=== PATIENT | male | born 1970 | race Caucasian/White ===

== ENCOUNTER 2021-05-22 08:55 | Inpatient (IN) ==
[2021-05-22] MEDS ORDERED: FAMOTIDINE 20MG IV PUSH 20 MG/5 ML SYR IV STA (09:10)
[2021-05-22] MEDS ORDERED: STAT IV STA (09:10)
[2021-05-22] MEDS ORDERED: LORazepam 2 MG/1 ML VIAL IV STA (09:10)
[2021-05-22] MEDS ORDERED: OCTREOTIDE ACETATE 100 MCG in SYRINGE 9 ML IV STA (09:10)
[2021-05-22] MEDS ORDERED: MULTI-VITAMIN INFUSION 10 ML, THIAMINE HCL 100 MG, FOLIC ACID 1 MG in SODIUM CHLORIDE 0... IV ONE (09:10)
--- NOTE | 2021-05-22 09:17 | Emergency Department Note ---
Impression & Plan Acute upper GI bleed, Alcohol abuse, Elevated troponin, Hyperglycemia ED Provider Note Name: FREDA PASTRANA Age: 50 Sex: M Arrives Via: Ambulance Informant: Patient ED Provider: Pipe Wagner MD Chief Complaint: vomiting Impression: As per impressions above Medical Decision Makin-year-old gentleman arrives for evaluation of vomiting blood or alcoholism and to return to drinking about a week ago drinking heavily for the last week. Began vomiting blood about 3 days ago now having black/bloody stools as well. On arrival he is somewhat tachycardic mildly pale appearing quite nauseous appearing. He is also somewhat tremulous and I suspect is mildly withdrawing from alcohol. He was given IV Ativan with improvement of his tremulous. He is given 1 L of banana bag IV along with Protonix, Pepcid for stomach protection as well as octreotide has unclear if he has a history of varices. He is not actively vomiting blood here in the ER and thus I did not immediately consult gastroenterology. His labs returned with a hemoglobin of 10, alcohol is negative and an elevated troponin. He is tachycardic though no clear evidence of ischemia on EKG and he has no chest pain or shortness of breath. Bump likely stress response that will need trending. With his active bleeding there would be contraindication to anticoagulation or aspirin. WBC is quite elevated though he is afebrile with no shortness of breath no abdominal tenderness per palpation there is no clear evidence of infection other than the white blood cell count evaluation thus I would not start antibiotics at this time. This too may be related to stress response. He has somewhat hyper glycemic notes diabetes has been discussed when he is more overweight but he believes that it had improved after losing weight. I did obtain an ABG which reveals no evidence of acidosis at this time. I consulted the hospitalist who note they will manage gastroenterology etc. consultation. Prior Medical Record and Triage/Nursing Notes reviewed by Me Differentials:Peptic ulcer disease, gastric ulcer, bleeding varices, gastritis, Kami-Dorantes tear, ischemic gut amongst other pathologies. Vital Signs: reviewed and remarkable for tachycardia Interventions: IV lock, banana bag iv, ativan iv, protonix iv, pepcid iv, octreotide iv Labs:Reviewed and remarkable for anemia, leukocytosis, elevated troponin Imagin view chest x-ray no acute findings EKG:Per My Interpretation: Indication Vomiting/Tachy: Sinus Tach 129 bpm, qtc 451. No Ectopy. No Ischemia. No previous for comparison Cardiac/Tele Monitoring: Cardiac Monitoring: An Order was placed for continuous cardiac monitoring. The monitor shows a rate of 120 with a sinus tach rhythm. Consults:Dr Hannah Ramos hospitalist Plan: Disposition: Hospitalization Condition: Fair History of Present Illness:50-year gentleman arrives for evaluation of vomiting. Patient notes a long history of alcohol issues with waxing and waning sobriety. He notes he had been sober for the last few months until about a week ago when he started drinking again. He drank daily until Saturday evening decided to quit. Over the last 3 days worsening nausea and vomiting. He started having black/bloody emesis and then today started noticing blood in his stool. He notes some mild epigastric discomfort and severe nausea. Associated with tr emulous shakes. He does feel somewhat lightheaded and weak with standing. Denies any chest pain, shortness of breath, syncope, headache, abdominal pain, leg swelling, rashes or other symptoms. 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 Exertion makes worse rest makes better. He is on no blood thinners. He is on no medications at all. He has had no recent trauma to the abdomen. No medications prior to arrival ROS: See above HPI for pertinent positives & negatives. A total of 10 systems reviewed and were otherwise negative. 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 Home Medications:None occasionally takes Pepcid Allergies:No known drug allergies Vitals:Blood Pressure: 146/90, Pulse 120, RR 19, T 36.6C, O2 92% on RA Physical Exam: GENERAL: Patient is ill/unwell appearing and in moderate distress. EYES: No scleral icterus, unremarkable pupils. ENT: Mucous membranes dry, no nasal congestion. NECK: No masses appreciated, nomeningismus, trachea is midline. RESPIRATORY: No dyspnea. Clear to auscultation and equal bilaterally. No wheeze, no rhonchi. CARDIOVASCULAR: Tachy.No murmurs, rubs, gallops appreciated. GASTROINTESTINAL: Abdomen soft, non-tender, no peritonitis.Bowel sounds positive.No masses appreciated. BACK: No midline tenderness, no CVA tenderness EXTREMITIES: Normal motion all extremities, no cyanosis, no edema. NEUROLOGIC: tremulous, alert and oriented, no acute motor or sensory deficits, no focal weakness, cranial nerves grossly intact. SKIN: No rash, no jaundice, no diaphoresis. PSYCH: Appropriate GCS: 15 ED Course: Times/Reassessments: Since patient does seem somewhat calmer though still ill- appearing. His heart rate has gradually started trending down his blood pressures been stable Critical Care: I have personally spent 35 minutes of critical care time in the direct management of this patient. Acute Upper GI bleed in alcoholic with withdrawal and elevated troponin. This was a life/limb threatening event. This 35 minutes is in excess of all separately billable procedures. Pipe Wagner MD Past Med/Surg History Medical History Alcohol abuse Surgical History (Updated 05/22/21 @ 12:28 by MOLLY Fowler) History of tonsillectomy S/P right knee arthroscopy Social History Smoking Status: Never smoker Preferred Language: Montenegrin Feels Safe at Home: Yes Allergies Allergies Allergy/AdvReac Type Severity Reaction Status Date / Time No Known Allergies Allergy Unverified 05/22/21 11:45 Home Meds Home Medications Medication Instructions Recorded Confirmed No Known Home Medications 05/22/21 05/22/21 Results & Data (ED) Vital Signs Vital Signs - 24 hr 05/22/21 09:00 05/22/21 09:30 05/22/21 11:00 Temperature 36.6 C Temperature Source Oral Pulse Rate 132 H 123 H 106 H Pulse Rhythm Regular Pulse Strength Normal Respiratory Rate 20 20 17 Respiratory Effort / Characteristics Non-Labored Spontaneous Respiratory Depth Normal Respiratory Pattern Regular Blood Pressure 137/99 154/99 H 152/83 H Blood Pressure Mean 111 117 106 Blood Pressure Position Sitting Pulse Oximetry 96 96 97 Oxygen Delivery Method Room Air Nasal Cannula Nasal Cannula Oxygen Flow Rate 2 2 Sepsis Recent Fever Within 48 Hours No Sepsis New/Unexplained Change in Mental Status No Sepsis Action Taken by Nursing No Action Required 05/22/21 12:00 05/22/21 12:30 05/22/21 13:00 Temperature Temperature Source Pulse Rate 106 H 105 H 107 H Pulse Rhythm Pulse Strength Respiratory Rate 16 18 15 Respiratory Effort / Characteristics Respiratory Depth Respiratory Pattern Blood Pressure 130/107 H 152/97 H 143/88 H Blood Pressure Mean 114 115 106 Blood Pressure Position Pulse Oximetry Oxygen Delivery Method Oxygen Flow Rate Sepsis Recent Fever Within 48 Hours Sepsis New/Unexplained Change in Mental Status Sepsis Action Taken by Nursing 05/22/21 13:30 Temperature Temperature Source Pulse Rate 110 H Pulse Rhythm Pulse Strength Respiratory Rate 19 Respiratory Effort / Characteristics Respiratory Depth Respiratory Pattern Blood Pressure 146/90 H Blood Pressure Mean 108 Blood Pressure Position Pulse Oximetry Oxygen Delivery Method Oxygen Flow Rate Sepsis Recent Fever Within 48 Hours Sepsis New/Unexplained Change in Mental Status Sepsis Action Taken by Nursing Laboratory Data Result diagrams: 05/22/21 09:09 05/22/21 09:09 Lab Results 05/22/21 05/22/21 05/22/21 Range/Units 09:09 09:09 09:09 WBC 22.16 H (4.8-10.8) K/uL RBC 3.28 L (4.7-6.1) M/uL Hgb 10.7 L (14.0-18.0) g/dL Hct 29.2 L (42-52) % MCV 89.0 (80-100) fL MCH 32.6 (25-34) pg MCHC 36.6 H (32-36) g/dL RDW Std Deviation 41.4 (36.4-46.3) fL RDW Coeff of Vito 12.9 (11.5-14.5) % Plt Count 186 (130-400) K/uL MPV 11.7 H (7.4-10.4) fL Immature Gran % (Auto) 0.4 % Neut % (Auto) 89.4 % Lymph % (Auto) 5.4 % [place] % (Auto) 4.8 % Eos % (Auto) 0.0 % Baso % (Auto) 0.0 % Neut # (Auto) 19.81 H (1.4-6.5) K/uL Lymph # (Auto) 1.20 (1.2-3.4) K/uL [place] # (Auto) 1.07 H (0.11-0.59) K/uL Eos # (Auto) 0.00 (0-0.5) K/uL Baso # (Auto) 0.00 (0-0.2) K/uL Immature Gran # (Auto) 0.08 H (0.00-0.02) K/uL PT 11.9 (9.0-12.0) Seconds INR 1.1 (0.9-1.1) APTT 22.1 (21.0-31.0) Seconds PTT Ratio 0.8 ABG pH ABG pCO2 ABG pO2 ABG HCO3 ABG O2 Saturation ABG Base Excess Dao Test Barometric Pressure Oxygen Given Sodium (136-145) mmol/L Potassium (3.5-5.1) mmol/L Chloride (98-107) mmol/L Carbon Dioxide (21-32) mmol/L Anion Gap (3-11) BUN (6-23) mg/dl Creatinine (0.6-1.4) mg/dl Est Cr Clr Drug Dosing ml/min Est GFR ( Amer) ml/min Est GFR (Non-Af Amer) ml/min BUN/Creatinine Ratio (10-20) Glucose (70-99(Fasting)) mg/dl Calcium (8.5-10.1) mg/dl Magnesium (1.7-2.4) mg/dl Total Bilirubin (0.2-1.0) mg/dl Direct Bilirubin (0-0.2) mg/dl AST (13-39) U/L ALT (7-52) U/L Alkaline Phosphatase (34-104) U/L Troponin I (0-0.04) ng/ml Total Protein (6.0-8.3) gm/dl Albumin (3.4-5.0) gm/dl Lipase (11-82) U/L Ethyl Alcohol mg/dL (<10.0) mg/dl SARS-CoV-2, RNA, NAAT (NEGATIVE) Blood Type AB Positive Antibody Screen NEGATIVE 05/22/21 05/22/21 05/22/21 Range/Units 09:09 09:09 10:19 WBC (4.8-10.8) K/uL RBC (4.7-6.1) M/uL Hgb (14.0-18.0) g/dL Hct (42-52) % MCV (80-100) fL MCH (25-34) pg MCHC (32-36) g/dL RDW Std Deviation (36.4-46.3) fL RDW Coeff of Vito (11.5-14.5) % Plt Count (130-400) K/uL MPV (7.4-10.4) fL Immature Gran % (Auto) % Neut % (Auto) % Lymph % (Auto) % [place] % (Auto) % Eos % (Auto) % Baso % (Auto) % Neut # (Auto) (1.4-6.5) K/uL Lymph # (Auto) (1.2-3.4) K/uL [place] # (Auto) (0.11-0.59) K/uL Eos # (Auto) (0-0.5) K/uL Baso # (Auto) (0-0.2) K/uL Immature Gran # (Auto) (0.00-0.02) K/uL PT (9.0-12.0) Seconds INR (0.9-1.1) APTT (21.0-31.0) Seconds PTT Ratio ABG pH Cancelled ABG pCO2 Cancelled ABG pO2 Cancelled ABG HCO3 Cancelled ABG O2 Saturation Cancelled ABG Base Excess Cancelled Dao Test Cancelled Barometric Pressure Cancelled Oxygen Given Cancelled Sodium 134 L (136-145) mmol/L Potassium 3.4 L (3.5-5.1) mmol/L Chloride 91 L (98-107) mmol/L Carbon Dioxide 28 (21-32) mmol/L Anion Gap 15 H (3-11) BUN 50 H (6-23) mg/dl Creatinine 1.14 (0.6-1.4) mg/dl Est Cr Clr Drug Dosing 83.1 ml/min Est GFR ( Amer) 85.8 ml/min Est GFR (Non-Af Amer) 74.1 ml/min BUN/Creatinine Ratio 43.9 H (10-20) Glucose 210 H (70-99(Fasting)) mg/dl Calcium 9.6 (8.5-10.1) mg/dl Magnesium 1.5 L (1.7-2.4) mg/dl Total Bilirubin 3.2 H (0.2-1.0) mg/dl Direct Bilirubin 0.5 H (0-0.2) mg/dl AST 36 (13-39) U/L ALT 29 (7-52) U/L Alkaline Phosphatase 63 (34-104) U/L Troponin I 0.08 H* (0-0.04) ng/ml Total Protein 6.4 (6.0-8.3) gm/dl Albumin 4.0 (3.4-5.0) gm/dl Lipase 43 (11-82) U/L Ethyl Alcohol mg/dL < 10.0 (<10.0) mg/dl SARS-CoV-2, RNA, NAAT (NEGATIVE) Blood Type Antibody Screen 05/22/21 05/22/21 05/22/21 Range/Units 11:00 11:04 11:40 WBC (4.8-10.8) K/uL RBC (4.7-6.1) M/uL Hgb (14.0-18.0) g/dL Hct (42-52) % MCV (80-100) fL MCH (25-34) pg MCHC (32-36) g/dL RDW Std Deviation (36.4-46.3) fL RDW Coeff of Vito (11.5-14.5) % Plt Count (130-400) K/uL MPV (7.4-10.4) fL Immature Gran % (Auto) % Neut % (Auto) % Lymph % (Auto) % [place] % (Auto) % Eos % (Auto) % Baso % (Auto) % Neut # (Auto) (1.4-6.5) K/uL Lymph # (Auto) (1.2-3.4) K/uL [place] # (Auto) (0.11-0.59) K/uL Eos # (Auto) (0-0.5) K/uL Baso # (Auto) (0-0.2) K/uL Immature Gran # (Auto) (0.00-0.02) K/uL PT (9.0-12.0) Seconds INR (0.9-1.1) APTT (21.0-31.0) Seconds PTT Ratio ABG pH Cancelled 7.51 H* ABG pCO2 Cancelled 35 ABG pO2 Cancelled 107 H ABG HCO3 Cancelled 27 H ABG O2 Saturation Cancelled 98.0 H ABG Base Excess Cancelled 3.9 H Dao Test Cancelled Pos Barometric Pressure Cancelled 730.3 Oxygen Given Cancelled 2 L Sodium (136-145) mmol/L Potassium (3.5-5.1) mmol/L Chloride (98-107) mmol/L Carbon Dioxide (21-32) mmol/L Anion Gap (3-11) BUN (6-23) mg/dl Creatinine (0.6-1.4) mg/dl Est Cr Clr Drug Dosing ml/min Est GFR ( Amer) ml/min Est GFR (Non-Af Amer) ml/min BUN/Creatinine Ratio (10-20) Glucose (70-99(Fasting)) mg/dl Calcium (8.5-10.1) mg/dl Magnesium (1.7-2.4) mg/dl Total Bilirubin (0.2-1.0) mg/dl Direct Bilirubin (0-0.2) mg/dl AST (13-39) U/L ALT (7-52) U/L Alkaline Phosphatase (34-104) U/L Troponin I (0-0.04) ng/ml Total Protein (6.0-8.3) gm/dl Albumin (3.4-5.0) gm/dl Lipase (11-82) U/L Ethyl Alcohol mg/dL (<10.0) mg/dl SARS-CoV-2, RNA, NAAT NEGATIVE (NEGATIVE) Blood Type Antibody Screen Administered Medications Magnesium Sulfate/Dextrose (Magnesium Sulfate / D5w) 1 gm in 100 mls @ 50 mls/hr IV Q2H LATONYA Stop: 05/22/21 15:05 Last Admin: 05/22/21 12:22 Dose: 50 mls/hr Documented by: [id number] Pantoprazole Sodium 40 mg/ (Dextrose) 100 mls @ 20 mls/hr IV Q5H LATONYA Stop: 06/21/21 11:14 Last Admin: 05/22/21 12:22 Dose: 8 mg/hr, 20 mls/hr Documented by: [id number] Discontinued Medications Multivitamins 10 ml/ Thiamine HCl 100 mg/ Folic Acid 1 mg/Sodium Chloride 1,011.2 mls @ 1,011.2 mls/hr IV .Q1H ONE Stop: 05/22/21 10:09 Last Infusion: 05/22/21 10:38 Dose: 0 mls/hr Documented by: [id number] Admin: 05/22/21 09:38 Dose: 1,011.2 mls/hr Documented by: [id number] Famotidine (Pepcid 20mg Iv Push) 20 mg in 5 mls @ 2.5 mls/min IV NOW STA Stop: 05/22/21 09:11 Last Admin: 05/22/21 09:29 Dose: 2.5 mls/min Documented by: [id number] Octreotide Acetate 100 mcg/ (Syringe) 10 mls @ 3 mls/min IV NOW STA Stop: 05/22/21 09:13 Last Admin: 05/22/21 09:38 Dose: 3 mls/min Documented by: [id number] Pantoprazole Sodium 80 mg/ (Dextrose) 100 mls @ 400 mls/hr IV ONE STA Stop: 05/22/21 10:02 Last Infusion: 05/22/21 10:39 Dose: 0 mls/hr Documented by: [id number] Admin: 05/22/21 10:24 Dose: 400 mls/hr Documented by: [id number] Lorazepam (Lorazepam 2 Mg/1 Ml Vial) 2 mg IV NOW STA Stop: 05/22/21 09:11 Last Admin: 05/22/21 09:29 Dose: 2 mg Documented by: [id number] Miscellaneous (Stat Iv) 1 ea N/A NOW STA Stop: 05/22/21 09:11 Last Admin: 05/22/21 09:38 Dose: 1 ea Documented by: [id number] Imaging Data Radiologist's Impression: Chest X-Ray 05/22/21 09:13 XR chest 1V portable CLINICAL HISTORY: gi bleed, tachy, etoh TECHNIQUE: Single frontal radiograph of the chest was obtained. Comparison: None available at the time of this dictation. FINDINGS: No lines and tubes are seen. The cardiomediastinal silhouette is normal. The onelia ngs are clear. No evidence of pleural effusion or pneumothorax. IMPRESSION: No acute chest disease. ACT 112: Negative or not required by law. Electronically signed by: Antwan Ruiz M.D. 05/22/2021 10:17 AM Discharge Plan Visit Data Chief Complaint: GI Bleed Stated Complaint: VOMITING, ALCOHOL WITHDRAWL ED Provider: Pipe Wagner Discharge Problem: Acute upper GI bleed, Alcohol abuse, Elevated troponin, Hyperglycemia Forms Stand Alone Forms: Pollsb Prescriptions Prescriptions: No Action No Known Home Medications RF: 0 Referrals Referrals: PCP,NO [Primary Care Provider] -
[2021-05-22 09:39] LABS: Hematocrit (blood only) 29.2 % (42-52); Hemoglobin 10.7 g/dL (14.0-18.0); Immature Granulocytes # (auto) 0.08 K/uL (0.00-0.02); Immature Granulocytes % (auto) 0.4 %; Lymphocytes % (auto) 5.4 %; Mean Corpuscular Hemoglobin 32.6 pg (25-34); Mean Corpuscular Hgb Conc 36.6 g/dL (32-36); Mean Platelet Volume 11.7 fL (7.4-10.4); Monocytes # (auto) 1.07 K/uL (0.11-0.59); Monocytes % (auto) 4.8 %; Neutrophils # (auto) 19.81 K/uL (1.4-6.5); Neutrophils % (auto) 89.4 %; Platelet Count 186 K/uL (130-400); RDW Coefficient of Variation 12.9 % (11.5-14.5); RDW Standard Deviation 41.4 fL (36.4-46.3); Red Blood Count 3.28 M/uL (4.7-6.1); White Blood Count 22.16 K/uL (4.8-10.8)
[2021-05-22] MEDS ORDERED: PANTOprazole 80 MG in DEXTROSE 5% 100 ML IV STA (09:48)
[2021-05-22 09:49] LABS: INR 1.1 (0.9-1.1); Partial Thromboplastin Ratio 0.8; Partial Thromboplastin Time 22.1 Seconds (21.0-31.0); Prothrombin Time 11.9 Seconds (9.0-12.0)
[2021-05-22 09:59] LABS: BUN Creatinine Ratio 43.9 (10-20); Bilirubin Direct 0.5 mg/dl (0-0.2); Bilirubin,Total 3.2 mg/dl (0.2-1.0); Calcium 9.6 mg/dl (8.5-10.1); Creatinine Clr Calc Pharmacy 83.1 ml/min; Est GFR (African American) 85.8 ml/min; Est GFR (Non-African American) 74.1 ml/min; Magnesium 1.5 mg/dl (1.7-2.4); Potassium 3.4 mmol/L (3.5-5.1); Total Protein 6.4 gm/dl (6.0-8.3)
[2021-05-22 10:05] LABS: Troponin I 0.08 ng/ml (0-0.04)
--- NOTE | 2021-05-22 10:18 | XRay Report ---
XR chest 1V portable CLINICAL HISTORY: gi bleed, tachy, etoh TECHNIQUE: Single frontal radiograph of the chest was obtained. Comparison: None available at the time of this dictation. FINDINGS: No lines and tubes are seen. The cardiomediastinal silhouette is normal. The lungs are clear. No evid ence of pleural effusion or pneumothorax. IMPRESSION: No acute chest disease. ACT 112: Negative or not required by law. Electronically signed by: Antwan Ruiz M.D. 05/22/2021 10:17 AM
[2021-05-22 11:55] LABS: Base Excess ABG 3.9 mEq/L (-9-1.8); HCO3 ABG 27 mmol/L (19-24); PCO2 ABG 35 mmHg (35-46); PO2 ABG 107 mmHg (80-95)
[2021-05-22 11:59] LABS: Allen Test Pos (Pos)
[2021-05-22 12:04] LABS: pH ABG 7.51 (7.35-7.45)
[2021-05-22] MEDS: PANTOprazole 40 MG in DEXTROSE 5% 100 ML IV SCH ×3 (12:22→21:52)
[2021-05-22] MEDS: MAGNESIUM SULFATE / D5W 1 GM/100 ML BAG IV SCH ×2 (12:22→14:29)
--- NOTE | 2021-05-22 12:32 | History & Physical Report ---
Date of Service May 22, 2021 Assessment & Plan (1) Alcohol abuse: Plan: Patient reports a longstanding history of alcohol abuse with periods of sobriety and binge drinking. Last week, was drinking a bottle of port wine and " white claws" daily. Alcohol withdrawal protocol with gabapentin, as needed Ativan Start thiamine and folic acid Total bili 3.2, other LFTs WNL. Continue to monitor LFTs. (2) Elevated troponin: Plan: Initial troponin 0.08 No reports of chest pain, EKG does not show any acute ST changes Likely demand ischemia Continue to trend troponin (3) Hyperglycemia: Plan: Glucose 210, no reported history of diabetes Check A1c NovoLog per protocol while hospitalized (4) Hypomagnesemia: Plan: MG +1.5 Likely due to GI losses Replace, follow electrolytes (5) DVT prophylaxis: Plan: SCDs due to GI bleeding History of Present Illness Chief Complaint: Vomiting Primary Care Provider: NO PCP 50-year-old male PMH alcohol abuse, and other problems listed below who presents to the ED for evaluation of vomiting. Patient reports an ongoing struggle with sobriety over the past several years having periods of being sober and binge drinking. Patient reports that last week, he was drinking a bottle of port wine and "white claws" every evening. Last drink was 3 days ago. Patient reports that on Saturday, he woke up and was nauseated and began vomiting. He reports several episodes of vomiting since that time. Describes emesis as coffee-ground material and black in color. He also reports some intermittent bright red blood. Stools have been dark and tarry. Patient denies abdominal pain. He has been unable to keep down any food or drink. Patient denies chest pain or shortness of breath. He reports that he felt lightheaded this morning however denies any syncopal event. No other recent illnesses, fevers, chills. No urinary symptoms. In the ED, labs show Hgb 10.7. Troponin mildly elevated 0.08. Patient is tachycardic, otherwise hemodynamically stable. He was given IV famotidine, banana bag, IV octreotide, IV Protonix. Allergies Allergy/AdvReac Type Severity Reaction Status Date / Time No Known Allergies Allergy Unverified 05/23/21 08:25 Home Medications Medication Instructions Recorded Confirmed Type folic acid 1 mg tablet 1 mg PO QAM #30 tab 05/24/21 Rx lorazepam 0.5 mg tablet (Ativan) 0.5 mg PO Q8H PRN #10 tab 05/24/21 Rx pantoprazole 40 mg tablet,delayed 40 mg PO DAILY #30 tab 05/24/21 Rx release sucralfate 1 gram tablet (Carafate) 1 g PO QID #56 tab 05/24/21 Rx thiamine HCl (vitamin B1) 100 mg 100 mg PO QAM #30 tab 05/24/21 Rx tablet Past Med/Surg History Medical History Acute upper GI bleed Alcohol abuse Surgical History History of tonsillectomy S/P right knee arthroscopy Family History Mother Brain tumor Father Heart disease Social History Smoking Status: Never smoker Second Hand Exposure: No; Do You Dip or Chew Tobacco: No; Tobacco Cessation Education Requested by Patient: No Hx Alcohol Use: Yes Alcohol type: hard liquor and other Hx Substance Use: Yes Last Used Substance: Days (ago) Last Used Substance Other:: ~ 1wkke Preferred Language: Divehi Communication Ability: Effective Delivery Crew Worker Required: No Beliefs That Will Affect Care: None marital status: Current Living Situation: Alone Other Information That Helps Us Care for You: No Feels Safe at Home: Yes Safety Concerns: Feels Safe At This Time Assistive Devices: None Review of Systems Review of Systems: ROS per HPI, all other systems reviewed and negative Physical Exam Constitutional: WD/WN, vitals as above Eyes: PERRL, conjunctivae normal, anicteric sclerae ENMT: external ear and nose normal, oropharynx normal Respiratory: normal respiratory effort, lungs clear to auscultation Cardiovascular: Rate/Rhythm: regular rhythm and + tachycardic Vessels: nor mal peripheral pulses Extremities: no edema Gastrointestinal (Abdomen): normal bowel sounds, soft, nontender, no hepatosplenomegaly Musculoskeletal: no cyanosis or clubbing, extremities motor strength 5/5 Skin: no rashes, warm and dry Neurologic: PERRL, EOMI, accommodation nl, no face palsy, no dysarthria Psychiatric: A+Ox3, euthymic affect Results & Data Results & Data ([facility]) Vital Signs (Past 12 Hours) Vital Signs Temp Pulse Resp BP Pulse Ox 05/22/21 11:00 106 H 17 152/83 H 97 05/22/21 09:30 123 H 20 154/99 H 96 05/22/21 09:00 36.6 C 132 H 20 137/99 96 Laboratory Results Short CBC 05/22/21 05/22/21 05/22/21 Range/Units 09:09 09:09 16:30 WBC 22.16 H (4.8-10.8) K/uL Hgb 10.7 L 9.1 L (14.0-18.0) g/dL Hct 29.2 L 25.4 L (42-52) % Plt Count 186 (130-400) K/uL Troponin I 0.08 H* (0-0.04) ng/ml BMP 05/22/21 09:09 Sodium 134 L Potassium 3.4 L Chloride 91 L Carbon Dioxide 28 BUN 50 H Creatinine 1.14 Glucose 210 H Calcium 9.6 Cardiac Enzymes 05/22/21 Range/Units 09:09 Troponin I 0.08 H* (0-0.04) ng/ml Liver Function 05/22/21 Range/Units 09:09 Total Bilirubin 3.2 H (0.2-1.0) mg/dl Direct Bilirubin 0.5 H (0-0.2) mg/dl AST 36 (13-39) U/L ALT 29 (7-52) U/L Alkaline Phosphatase 63 (34-104) U/L Albumin 4.0 (3.4-5.0) gm/dl Diagnostic Findings Chest X-Ray 05/22/21 09:13 XR chest 1V portable CLINICAL HISTORY: gi bleed, tachy, etoh TECHNIQUE: Single frontal radiograph of the chest was obtained. Comparison: None available at the time of this dictation. FINDINGS: No lines and tubes are seen. The cardiomediastinal silhouette is normal. The lungs are clear. No evidence of pleural effusion or pneumothorax. IMPRESSION: No acute chest disease. ACT 112: Negative or not required by law. Electronically signed by: Antwan Ruiz M.D. 05/22/2021 10:17 AM Code Status & VTE Plan VTE Prophylaxis Plan VTE Prophylaxis will be ordered: Yes Supervising Physician Co-Signing Physician Notes Pt was seen and examined. Agreed with Sherice BARNES exam, assessment and plan. 50-year-old male PMH alcohol abuse presents to the ED for evaluation of hematemesis. Pt said that last week he was drinking a bottle of port wine and "white claws" every evening. His last drink was about 3 days ago. Pt said that last Saturday he felt nauseated and started to vomiting. He said that he had a few episodes of coffee ground emesis. He said that he has been having dark and tarry stool. Pt said that he had a similar episodes about 5 years ago in [place] where he had EGD done. In the ED, labs show Hgb 10.7. Troponin mildly elevated 0.08. He was given IV famotidine, banana bag, IV octreotide, IV Protonix. GI consulted and plan for EGD in am. Continue monitor H/H closely. MD Hannah
--- NOTE | 2021-05-22 12:33 | Electrocardiogram Report ---
Test Reason : Blood Pressure : / mmHG Vent. Rate : 129 BPM Atrial Rate : 129 BPM P-R Int : 150 ms QRS Dur : 086 ms QT Int : 308 ms P-R-T Axes : 030 058 044 degrees QTc Int : 451 ms Poor data quality, interpretation may be adversely affected Sinus tachycardia Otherwise Normal ECG No previous ECGs available Confirmed by Nathan Godwin ([id number]) on 05/22/2021 12:33:38 PM Referred By: REFERRED SELF Confirmed By:Nathan Godwin
--- NOTE | 2021-05-22 15:00 | Communication Note ---
Date of Service: May 22, 2021 I saw and evaluated the patient. Full consult note is pending. The patient did present with several days of dark stool in addition to several episodes of coffee-ground emesis. Have a history of alcohol consumption but is not known to have underlying liver disease. examination no obvious distress No scleral icterus No abdominal tenderness Impression: Patient presenting with coffee-ground emesis in the setting of melena. We will proceed with upper endoscopy at next available which will likely be tomorrow a.m. Would recommend the patient be n.p.o. for the present time and begin a Protonix drip.
--- NOTE | 2021-05-22 15:28 | Gastrointestinal Consultation ---
Date of Consultation May 22, 2021 Assessment & Plan (1) Alcohol abuse: Appreciate hospitalists management of alcohol withdrawal. No clear evidence of cirrhosis (no ascites or edema, normal platelets, no spider angiomas) Mr. Bill Anton is a 50 yr old male who admits to drinking increased amts of alcohol and presented due to dizziness/weakness and reports 3 days of black/loose BMs, nausea and vomiting of coffee grounds material. Agree with PPI, clear liquids po. Please consider cardiology consult regarding elevated Troponin. Will plan for EGD tomorrow. Recommend alcohol cessation. Further recommendations to follow EGD. Supervising Physician Co-Signing Physician Notes I saw and evaluated the patient in the emergency room on May 22. He presented with several episodes of coffee-ground emesis in the setting of alcohol abuse. The patient denies having any hematochezia but does admit to having dark stool over the last few days. Patient does not have a known history of liver disease. Physical examination No obvious distress No scleral icterus No epigastric tenderness Impression: Patient with a history of alcohol abuse presenting with coffee-grou nd emesis. We will make arrangements for upper endoscopy at the next available which would likely be on Saturday. The patient should be left n.p.o. until upper endoscopy has been completed. In the meantime we would suggest use of Protonix 40 mg twice daily and watching for signs of alcohol withdrawal. History of Present Illness Reason for Consultation: GI bleed Requesting Physician: Sherice Mueller NP History of Present Illness Mr. Pernell Anton is a 50 yr old male pt w/o a local PCP who presented to the ED early today for melena, hematemesis (coffee grounds) of 3 days duration, having passed a black/loose BM 2-3 times/day (most recently at 9AM in the ED) and vomited every 2-3 hours while awake, most recently just prior to being brought to the ED by EMS this morning. He denies any significant abdominal pain but does have a "sore abdomen from vomiting." He admits to drinking too much alcohol and most recent alcohol intake was 3 days ago. At that time, he stopped because of nausea/vomiting. He also recalls having undergone an upper scope about 5 yrs ago for similar symptoms and doesn't recall any significant abnormalities. On arrival, Hb is 10, BUN 50. Pt is awake, alert. He is tachycardic, initially 120s, now 100 and mildly hypertensive. INR is normal and he is not on any antiplatlets or anticoagulants and tested (-) for COVID. Allergies Allergy/AdvReac Type Severity Reaction Status Date / Time No Known Allergies Allergy Unverified 05/23/21 08:25 Home Medications Medication Instructions Recorded Confirmed Type No Known Home Medications 05/22/21 05/22/21 History Patient History Medical History Acute upper GI bleed Alcohol abuse Surgical History History of tonsillectomy S/P right knee arthroscopy Family History Mother Brain tumor Father Heart disease Social History Smoking Status: Never smoker Second Hand Exposure: No; Do You Dip or Chew Tobacco: No; Tobacco Cessation Education Requested by Patient: No Hx Alcohol Use: Yes Alcohol type: hard liquor and other Hx Substance Use: Yes Last Used Substance: Days (ago) Last Used Substance Other:: ~ 1wkke Preferred Language: Pashto Communication Ability: Effective Furniture Painter Required: No Beliefs That Will Affect Care: None Current Living Situation: Alone Other Information That Helps Us Care for You: No Feels Safe at Home: Yes Safety Concerns: Feels Safe At This Time Assistive Devices: Glasses Review of Systems Review of Systems: ROS: Gen: + some weakness/lightheadeness prior to arrival. No fevers, no weight loss Eyes: No eye redness, or pain, no recent vision changes Resp: No SOB, no cough Cardio: No palpitations/irregular beats, no chest pain GI: No abdominal pain, no nausea/vomiting : Denies pain on urination Skin: No jaundice, itching or new rashes Physical Exam Constitutional: well developed and cooperative Eyes: PERRL, conjunctivae normal, anicteric sclerae ENMT: external ear and nose normal, oropharynx normal Neck: trachea midline, no thyromegaly Respiratory: normal respiratory effort, lungs clear to auscultation Cardiovascular: Rate/Rhythm: regular rhythm and + tachycardic no murmurs, no peripheral edema Gastrointestinal (Abdomen): normal bowel sounds, soft, nontender, no hepatosp lenomegaly Skin: no rashes, warm and dry normal turgor no spider angiomas Neurologic: PERRL, EOMI, accommodation nl, no face palsy, no dysarthria awake; not confused Psychiatric: A+Ox3, euthymic affect (no jaundice, no spider angiomas) Lymphatic: no cervical or axillary lymphadenopathy Results & Data ([facility]) Vital Signs (Past 12 Hours) Vital Signs Temp Pulse Resp BP Pulse Ox 05/22/21 13:30 110 H 19 146/90 H 05/22/21 13:00 107 H 15 143/88 H 05/22/21 12:30 105 H 18 152/97 H 05/22/21 12:00 106 H 16 130/107 H 05/22/21 11:00 106 H 17 152/83 H 97 05/22/21 09:30 123 H 20 154/99 H 96 05/22/21 09:00 36.6 C 132 H 20 137/99 96 Laboratory Results WBC 22, Hb 10, Hct 29, Plts ,186 BUN 50, Cr 1.14, INR 1.1 Na 134, K 3.4 Diagnostic Findings CXR 05/22/21: normal.
[2021-05-22] MEDS ORDERED: GLUCOSE 40% GEL 15 GM TUBE PO PRN (16:18)
[2021-05-22] MEDS ORDERED: LORazepam 2 MG/1 ML VIAL IV PRN ×3 (16:18)
[2021-05-22] MEDS ORDERED: CARBOHYDRATES FOR HYPOGLYCEMIA PO PRN (16:18)
[2021-05-22] MEDS ORDERED: GABAPENTIN 1200MG ALCOHOL WITHDRAWAL LOAD PO STA (16:18)
[2021-05-22] MEDS ORDERED: GLUCAGON FOR INJ 1 MG VIAL SQ PRN (16:18)
[2021-05-22] MEDS ORDERED: ATIVAN IV ALCOHOL WITHDRAWL IV PRN (16:18)
[2021-05-22] MEDS ORDERED: ACETAMINOPHEN 325 MG TAB PO PRN (16:18)
[2021-05-22] MEDS ORDERED: DEXTROSE 50% 50 ML SYRINGE IV PRN (16:18)
[2021-05-22] MEDS ORDERED: GLUCOSE 10 TABS/TUBE PO PRN (16:18)
[2021-05-22 16:58] LABS: Hematocrit (blood only) 25.4 % (42-52); Hemoglobin 9.1 g/dL (14.0-18.0)
[2021-05-22] MEDS ORDERED: GABAPENTIN 600 MG TAB PO ONE (17:00)
[2021-05-22] MEDS: FOLIC ACID 1 MG TAB PO SCH (17:53)
[2021-05-22] MEDS: THIAMINE HCL 100 MG TAB PO SCH (17:53)
[2021-05-22] MEDS: INSULIN ASPART PER UNIT SC SCH ×2 (17:57→21:51)
[2021-05-22] MEDS ORDERED: POTASSIUM CHLORIDE CRTAB 20 MEQ TABCR PO STA (19:56)
[2021-05-22] MEDS ORDERED: PROMETHAZINE HCL 12.5 MG in SODIUM CHLORIDE 0.9% 50 ML IV PRN (21:46)
[2021-05-22] MEDS: GABAPENTIN 600 MG TAB PO SCH (22:01)
[2021-05-22] MEDS: SODIUM CHLORIDE 0.9% 1000ML 1,000 ML IV SCH (22:02)
[2021-05-22 22:56] LABS: Hematocrit (blood only) 24.3 % (42-52); Hemoglobin 8.7 g/dL (14.0-18.0)
[2021-05-23] MEDS: PANTOprazole 40 MG in DEXTROSE 5% 100 ML IV SCH ×2 (02:50→10:25)
[2021-05-23] MEDS: SODIUM CHLORIDE 0.9% 1000ML 1,000 ML IV SCH ×2 (05:18→05:28)
[2021-05-23] MEDS: GABAPENTIN 600 MG TAB PO SCH ×3 (05:19→20:29)
[2021-05-23 06:27] LABS: Hematocrit (blood only) 22.9 % (42-52); Hemoglobin 8.3 g/dL (14.0-18.0); Mean Corpuscular Hemoglobin 32.8 pg (25-34); Mean Corpuscular Hgb Conc 36.2 g/dL (32-36); Mean Corpuscular Volume 90.5 fL (80-100); Platelet Count 156 K/uL (130-400); RDW Coefficient of Variation 13.2 % (11.5-14.5); RDW Standard Deviation 43.3 fL (36.4-46.3); Red Blood Count 2.53 M/uL (4.7-6.1); White Blood Count 14.92 K/uL (4.8-10.8)
[2021-05-23 06:55] LABS: Albumin Level 3.3 gm/dl (3.4-5.0); BUN Creatinine Ratio 28.9 (10-20); Bilirubin Direct 0.3 mg/dl (0-0.2); Bilirubin,Total 1.8 mg/dl (0.2-1.0); Calcium 7.6 mg/dl (8.5-10.1); Creatinine Clr Calc Pharmacy 114.8 ml/min; Est GFR (African American) 118.1 ml/min; Est GFR (Non-African American) 101.9 ml/min; Magnesium 2.1 mg/dl (1.7-2.4); Potassium 3.8 mmol/L (3.5-5.1); Total Protein 5.1 gm/dl (6.0-8.3)
[2021-05-23 07:46] LABS: Estimated Average Glucose 103 mg/dl; Hemoglobin A1C 5.2 % (4.5-5.6)
[2021-05-23] MEDS: INSULIN ASPART PER UNIT SC SCH ×4 (08:03→21:06)
--- NOTE | 2021-05-23 08:17 | Anesthesiology Consultation ---
Date of Service May 23, 2021 Assessment & Plan (1) Encounter for pre-operative examination: Chart Review Chart Review: Acceptable Risk for Surgery and Patient NOT seen in Pre Admission Testing Consults Requested none History Surgery Operation Date: 05/23/21 16:30 Proposed Procedures p Esophagogastroduodenoscopy Dr Chavo Tony, DO Height/Weight Height: 5 ft 7 in Weight: 93.5 kg Allergies Allergy/AdvReac Type Severity Reaction Status Date / Time No Known Allergies Allergy Unverified 05/22/21 11:45 Medications Home Medications Medication Instructions Recorded Confirmed Last Taken No Known Home Medications 05/22/21 05/22/21 Unknown Active Medications Generic Name Dose Route Start Last Admin Trade Name Freq PRN Reason Stop Dose Admin Folic Acid 1 mg 05/22/21 16:18 05/22/21 17:53 Folic Acid 1 Mg Tab PO 06/21/21 16:17 1 mg QAM LATONYA Administration Pantoprazole Sodium 40 mg/ 100 mls @ 20 mls/hr 05/22/21 11:15 05/23/21 08:02 Dextrose IV 06/21/21 11:14 Infused Q5H LATONYA Infusion 8 MG/HR Sodium Chloride 1,000 mls @ 150 mls/hr 05/22/21 17:00 05/23/21 05:28 Nss 1000ml IV 06/21/21 16:59 Not Given .Q6H40M LATONYA Promethazine HCl 12.5 mg/ 50.5 mls @ 202 mls/hr 05/22/21 21:46 05/23/21 00:10 Sodium Chloride IV 06/21/21 21:45 Infused Q6H PRN Infusion Nausea And Vomiting Insulin Aspart 0 units 05/22/21 16:18 05/23/21 08:03 Insulin Aspart Per Unit SC 06/21/21 16:17 Not Given ACHS LATONYA Thiamine HCl 100 mg 05/22/21 16:18 05/22/21 17:53 Thiamine Hcl 100 Mg Tab PO 06/21/21 16:17 100 mg QAM LATONYA Administration Past Medical History Medical History Acute upper GI bleed Alcohol abuse (3) Elevated troponin: Plan: Initial troponin 0.08 No reports of chest pain, EKG does not show any acute ST changes Likely demand ischemia Continue to trend troponin Past Family History Family History Mother Brain tumor Father Heart disease Past Surgical History Surgical History History of tonsillectomy S/P right knee arthroscopy Social History Smoking Status: Never smoker Do You Dip or Chew Tobacco: No Hx Alcohol Use: Yes Alcohol type: hard liquor and other alcohol intake frequency: 3 or more drinks per day Hx Substance Use: Yes substance use type: marijuana Last Used Substance: Days (ago) Last Used Substance Other:: ~ 1wkke Physical Exam Vital Signs Last Vital Signs Temp 37.0 C 05/23/21 07:22 Pulse 100 H 05/23/21 07:22 Resp 18 05/23/21 07:22 BP 113/74 05/23/21 07:22 Pulse Ox 97 05/23/21 07:22 Testing Laboratory Results 05/23/21 05:53 05/23/21 05:53 PT 11.9 Seconds (9.0-12.0) 05/22/21 09:09 INR 1.1 (0.9-1.1) 05/22/21 09:09 APTT 22.1 Seconds (21.0-31.0) 05/22/21 09:09 Hemoglobin A1c 5.2 % (4.5-5.6) 05/23/21 05:53 Blood Type AB Positive 05/22/21 09:09 Antibody Screen NEGATIVE 05/22/21 09:09 05/23/21 05/22/21 07:05 20:28 POC Glucose 105 H 120 H Electrocardiogram Date: 05/22/21 DICTATED BY:Nathan Godwin MD Test Reason : Blood Pressure : / mmHG Vent. Rate : 129 BPM Atrial Rate : 129 BPM P-R Int : 150 ms QRS Dur : 086 ms QT Int : 308 ms P-R-T Axes : 030 058 044 degrees QTc Int : 451 ms Poor data quality, interpretation may be adversely affected Sinus tachycardia Otherwise Normal ECG No previous ECGs available Confirmed by Nathan Godwin ([id number]) on 05/22/2021 12:33:38 PM
--- NOTE | 2021-05-23 08:35 | History & Physical Bridge Note ---
Date of Service May 23, 2021 History & Physical Bridge Note I have examined the patient, reviewed the History & Physical and in the interval since the performance of the History & Physical I have noted the following changes of clinical significance: no changes noted. Upper endoscopy planned for today to evaluate the patient's history of coffee-ground emesis. The patient does have a history of alcohol abuse and I would highly recommend watching for signs of alcohol withdrawal. The risks and benefits of the procedure were discussed with the patient to include bleeding, infection, perforation, pain and need for follow-up exams.
[2021-05-23] MEDS ORDERED: PROPOFOL IV EMULSION 10 MG/ML 20 ML VIAL IV ONE (08:36)
[2021-05-23] MEDS ORDERED: MIDAZOLAM HCL 1 MG/ML 2ML VIAL ONE (08:36)
[2021-05-23] MEDS ORDERED: LIDOCAINE 2% 2 ML VIAL/AMP(20MG/ML) INFIL ONE (08:36)
--- NOTE | 2021-05-23 09:05 | GI REPORT ---
Patient Name: Pernell Anton Procedure Date: 05/23/2021 8:43 AM Date of : 1970 Admit Type: Inpatient Age: 50 Gender: Male Attending MD: Kenya Tony DO Procedure: Upper GI endoscopy Providers: Kenya Tony DO Referring MD: SHARRON LEBRON Indications: Coffee-ground emesis, Nausea with vomiting Medicines: Monitored Anesthesia Care Complications: No immediate complications. Estimated blood loss: Minimal. Estimated Blood Loss: Estimated blood loss was minimal. Procedure: Pre-Anesthesia Assessment: - Prior to the procedure, a History and Physical was performed, and patient medications, allergies and sensitivities were reviewed. The patient's tolerance of previous anesthesia was reviewed. - The risks and benefits of the procedure and the sedation options and risks were discussed with the patient. All questions were answered and informed consent was obtained. - Patient identification and proposed procedure were verified prior to the procedure by the physician, the nurse and the histologic aide. The procedure was verified in the procedure room. - Pre-procedure physical examination revealed no contraindications to sedation. - ASA Grade Assessment: III - A patient with severe systemic disease. - After reviewing the risks and benefits, the patient was deemed in satisfactory condition to undergo the procedure. - The anesthesia plan was to use monitored anesthesia care (MAC). - Immediately prior to administration of medications, the patient was re-assessed for adequacy to receive sedatives. - The heart rate, respiratory rate, oxygen saturations, blood pressure, adequacy of pulmonary ventilation, and response to care were monitored throughout the procedure. - The physical status of the patient was re-assessed after the procedure. After obtaining informed consent, the endoscope was passed under direct vision. Throughout the procedure, the patient's blood pressure, pulse, and oxygen saturations were monitored continuously. The Endoscope was introduced through the mouth, and advanced to the third part of duodenum. The upper GI endoscopy was accomplished without difficulty. The patient tolerated the procedure well. Findings: LA Grade C (one or more mucosal breaks continuous between tops of 2 or more mucosal folds, less than 75% circumference) esophagitis with no bleeding was found 28 to 38 cm from the incisors. A medium-sized hiatal hernia was found. The proximal extent of the gastric folds (end of tubular esophagus) was 38 cm from the incisors. The hiatal narrowing was 41 cm from the incisors. The gastric fundus, gastric body, incisura and gastric antrum were normal. The examined duodenum was normal. Impression: - LA Grade C reflux esophagitis. - Medium-sized hiatal hernia. - Normal gastric fundus, gastric body, incisura and antrum. - Normal examined duodenum. - No specimens collected. Recommendation: - Return patient to hospital [facility] for ongoing care. - Use Prilosec (omeprazole) 40 mg PO daily for 3 months. - Use sucralfate suspension 1 gram PO QID for 2 weeks. - Repeat upper endoscopy in 3 months for surveillance. Kenya Tony D.O. Kenya Tony, 05/23/2021 9:05:00 AM This report has been signed electronically. Note Initiated On: 05/23/2021 8:43 AM Number of Addenda: 0 I attest to the content of the Intraoperative Record and orders documented therein, exceptions below {[id number]}
--- NOTE | 2021-05-23 09:08 | Communication Note ---
Date of Service: May 23, 2021 The patient underwent upper endoscopy this morning. Findings were notable for a 3 to 4 cm hiatal hernia and evidence of reflux esophagitis extending appro ximately 10 cm within the esophagus. There was no Evidence of upper gastrointestinal bleeding. Recommendations advance diet as tolerated Omeprazole 40 mg per day for 3 months Carafate slurry 4 times daily for 2 weeks repeat EGD in 3 months (patient likely do at his home) watch for signs of withdrawl consider a ua to screen for cannibis use GI to sign off, please call with any questions.
--- NOTE | 2021-05-23 09:20 | Communication Note ---
Date of Service: May 23, 2021 On discussion with the patient in the recovery area he does use edibles. I would recommend that the patient discontinue this as he can develop cannabis h yperemesis as result of their use.
[2021-05-23] MEDS: THIAMINE HCL 100 MG TAB PO SCH (10:22)
[2021-05-23] MEDS: FOLIC ACID 1 MG TAB PO SCH (10:23)
[2021-05-23] MEDS: PANTOprazole 40 MG TAB PO SCH ×2 (10:26→20:28)
--- NOTE | 2021-05-23 11:00 | Anesthesiology Progress Note ---
Date of Service May 23, 2021 Anesthesia Post Procedure Vital Signs Vital Signs: Temp Pulse Pulse Resp BP BP BP 05/23/21 10:15 37 C 99 H 18 124/60 05/23/21 09:34 89 18 124/82 05/23/21 09:19 98 H 18 128/87 05/23/21 09:04 103 H 18 107/64 05/23/21 08:26 37.8 C H 94 H 16 136/77 05/23/21 07:22 37.0 C 100 H 18 113/74 05/23/21 05:10 37.1 C 100 H 20 116/71 05/22/21 22:49 36.9 C 107 H 18 116/78 05/22/21 22:19 109 H 05/22/21 19:14 36.5 C 111 H 18 112/74 05/22/21 16:29 36.7 C 113 H 18 135/85 05/22/21 15:30 109 H 13 118/79 05/22/21 15:00 108 H 28 H 138/86 05/22/21 14:30 108 H 19 153/95 H 05/22/21 14:00 108 H 14 133/106 H 05/22/21 13:30 110 H 19 146/90 H 05/22/21 13:00 107 H 15 143/88 H 05/22/21 12:30 105 H 18 152/97 H 05/22/21 12:00 106 H 16 130/107 H Pulse Ox 05/23/21 10:15 98 05/23/21 09:34 100 05/23/21 09:19 100 05/23/21 09:04 96 05/23/21 08:26 95 05/23/21 07:22 97 05/23/21 05:10 94 05/22/21 22:49 94 05/22/21 22:19 05/22/21 19:14 96 05/22/21 16:29 95 05/22/21 15:30 96 05/22/21 15:00 05/22/21 14:30 05/22/21 14:00 94 05/22/21 13:30 05/22/21 13:00 05/22/21 12:30 05/22/21 12:00 Pain Intensity Knee: Pain Intensity: 5 Throat: Pain Intensity: 3 Transfer of Care Handoff Completed per policy Notes Mental Status: alert / awake / arousable and participated in evaluation Patient Amnestic to Procedure: Yes Nausea / Vomiting: adequately controlled Pain: adequately controlled Airway Patency, RR, SpO2: stable & adequate BP & HR: stable & adequate Hydration State: stable & adequate Anesthetic Complications: no major complications apparent and Pt Satisfied with anesthetic care
[2021-05-23] MEDS: SUCRALFATE 1 GM/10 ML UDC PO SCH ×3 (13:13→20:28)
--- NOTE | 2021-05-23 13:47 | Hospitalist Progress Note ---
Date of Service May 23, 2021 Assessment & Plan (1) GI bleed: Plan: Present on admission presented with coffee ground hematemesis and black loose BM Possible related to alcohol abuse Hgb on admission 10.7, then dropped to 8.3 today S/P EGD showed showed findings were notable for a 3 to 4 cm hiatal hernia and evidence of reflux esophagitis extending approximately 10 cm within the esophagus. There was no Evidence of upper gastrointestinal bleeding. GI recommended to continue Omeprazole 40 mg per day for 3 months and Carafate slurry 4 times daily for 2 weeks Will need to repeat EGD in 3 months consider to check UDS to screen for cannabis abuse due to the vomiting Will check CBC later and if stable will consider to discharge Follow up with Gastro outpatient (2) Alcohol abuse: Plan: Patient reports a longstanding history of alcohol abuse with periods of sobriety and binge drinking. Last week, was drinking a bottle of port wine and " white claws" daily. Pt denies any history of alcohol withdrawal Continue Alcohol withdrawal protocol with gabapentin, as needed Ativan Continue thiamine and folic acid Counseling on tobacco abuse (3) Elevated troponin: Plan: Initial troponin 0.08->0.05-> 0.04 No reports of chest pain, EKG does not show any acute ST changes Denies any chest pain Stable (4) Hyperglycemia: Plan: Most recent Hba1c 5.2 NovoLog per protocol while hospitalized Stable (5) Hypomagnesemia: Plan: Likely due to GI bleed Mg 1.5 on admission, Mg 2.1 today Stable (6) DVT prophylaxis: Plan: SCDs due to GI bleeding Code status Full code Disposition Possible discharge home today if H/H stable Admission and Anticipated Discharge Date Admission Date: May 22, 2021 Subjective Pt was seen and examined for follow up of GI bleed Lying in bed with no acute distress He said that he sleeps well last night Pt had EGD done this morning Denies any chest pain, palpitation, dizziness and SOB Review of Systems Review of Systems: All systems reviewed & are unremarkable except as noted in Subjective Physical Exam Physical Exam: General- No acute distress Head- atraumatic Eyes- PERRL, EOMI, ENT- oropharynx clear Neck- supple, no JVD Lungs- clear to auscultation Heart- regular rhythm; no murmur Abdomen- normal bowel sounds, soft, nontender Extremities- no calf tenderness Neuro- alert, oriented x 3; PERRL, EOMI; no facial palsy; no dysarthria Skin- warm & dry Results & Data Results & Data ([facility]) Vital Signs (Past 12 Hours) Vital Signs Temp Pulse Resp BP Pulse Ox 05/23/21 10:15 37 C 99 H 18 124/60 98 05/23/21 09:34 89 18 124/82 100 05/23/21 09:19 98 H 18 128/87 100 05/23/21 09:04 103 H 18 107/64 96 05/23/21 08:26 37.8 C H 94 H 16 136/77 95 05/23/21 07:22 37.0 C 100 H 18 113/74 97 05/23/21 05:10 37.1 C 100 H 20 116/71 94
[2021-05-23 14:27] LABS: Hematocrit (blood only) 20.9 % (42-52); Hemoglobin 7.4 g/dL (14.0-18.0)
[2021-05-23 14:58] LABS: Appearance Urine Clear (Clear); Bilirubin Urine Negative (Negative); Blood Urine Negative (Negative); Color Urine Dark Yellow; Glucose Urine UA Negative (Negative); Ketones Urine Trace (Negative); Leukocyte Esterase Urine Negative (Negative); Nitrite Urine Negative (Negative); Protein Urine Negative (Negative); Specific Gravity Urine 1.026 (1.000-1.030); Urobilinogen Urine Negative (Negative); pH Urine 5.5 (4.5-7.5)
[2021-05-23] MEDS ORDERED: SODIUM CHLORIDE 0.9% 250 ML IV PRN (14:58)
[2021-05-23 15:40] LABS: Amphetamines+Metham, Urine Neg (Neg); Barbiturates, Urine Neg (Neg); Benzodiazepine, Urine Pos (Neg); Cocaine, Urine Neg (Neg); MDMA (Ecstacy), Urine Neg (Neg); Methadone, Urine Neg (Neg); Opiate, Urine Neg (Neg); Phencyclidine, Urine Neg (Neg)
[2021-05-24] MEDS: SODIUM CHLORIDE 0.9% 1000ML 1,000 ML IV SCH ×2 (00:45→08:52)
[2021-05-24] MEDS: GABAPENTIN 600 MG TAB PO SCH (05:44)
[2021-05-24 06:39] LABS: Hematocrit (blood only) 24.9 % (42-52); Hemoglobin 8.7 g/dL (14.0-18.0); Mean Corpuscular Hemoglobin 31.9 pg (25-34); Mean Corpuscular Hgb Conc 34.9 g/dL (32-36); Mean Corpuscular Volume 91.2 fL (80-100); Platelet Count 150 K/uL (130-400); RDW Coefficient of Variation 13.8 % (11.5-14.5); RDW Standard Deviation 44.9 fL (36.4-46.3); Red Blood Count 2.73 M/uL (4.7-6.1)
[2021-05-24 07:05] LABS: BUN Creatinine Ratio 20.5 (10-20); Calcium 7.4 mg/dl (8.5-10.1); Creatinine Clr Calc Pharmacy 114.8 ml/min; Est GFR (African American) 118.1 ml/min; Est GFR (Non-African American) 101.9 ml/min; Magnesium 1.9 mg/dl (1.7-2.4); Phosphorus 3.2 mg/dl (2.5-4.9); Potassium 3.6 mmol/L (3.5-5.1)
[2021-05-24] MEDS: THIAMINE HCL 100 MG TAB PO SCH (08:51)
[2021-05-24] MEDS: SUCRALFATE 1 GM/10 ML UDC PO SCH (08:51)
[2021-05-24] MEDS: FOLIC ACID 1 MG TAB PO SCH (08:51)
[2021-05-24] MEDS: PANTOprazole 40 MG TAB PO SCH (08:51)
[2021-05-24] MEDS: INSULIN ASPART PER UNIT SC SCH ×2 (08:54→12:08)
[2021-05-24] MEDS ORDERED: STAT IV STA (11:22)
[2021-05-24] MEDS ORDERED: CALCIUM GLUCONATE 10% 1,000 MG in DEXTROSE 5% 50 ML IV ONE (12:00)
--- NOTE | 2021-05-24 12:50 | Discharge Summary ---
Date of Service May 24, 2021 Admission HPI Per Admitting Provider 50-year-old male PMH alcohol abuse, and other problems listed below who presents to the ED for evaluation of vomiting. Patient reports an ongoing struggle with sobriety over the past several years having periods of being sober and binge drinking. Patient reports that last week, he was drinking a bottle of port wine and "white claws" every evening. Last drink was 3 days ago. Patient reports that on Saturday, he woke up and was nauseated and began vomiting. He reports several episodes of vomiting since that time. Describes emesis as coffee-ground material and black in color. He also reports some intermittent bright red blood. Stools have been dark and tarry. Patient denies abdominal pain. He has been unable to keep down any food or drink. Patient denies chest pain or shortness of breath. He reports that he felt lightheaded this morning however denies any syncopal event. No other recent illnesses, fevers, chills. No urinary symptoms. In the ED, labs show Hgb 10.7. Troponin mildly elevated 0. 08. Patient is tachycardic, otherwise hemodynamically stable. He was given IV famotidine, banana bag, IV octreotide, IV Protonix. Admission Exam Per Admitting Provider Constitutional: WD/WN, vitals as above Eyes: PERRL, conjunctivae normal, anicteric sclerae ENMT: external ear and nose normal, oropharynx normal Respiratory: normal respiratory effort, lungs clear to auscultation Cardiovascular: Rate/Rhythm: regular rhythm and + tachycardic Vessels: normal peripheral pulses Extremities: no edema Gastrointestinal (Abdomen): normal bowel sounds, soft, nontender, no hepatosplenomegaly Musculoskeletal: no cyanosis or clubbing, extremities motor strength 5/5 Skin: no rashes, warm and dry Neurologic: PERRL, EOMI, accommodation nl, no face palsy, no dysarthria Psychiatric: A+Ox3, euthymic affect Principal Diagnosis Acute GI bleeding Alcohol abuse Acute blood loss anemia Discharge Exam CONSTITUTIONAL: WNWD, vitals as above, generally well-appearing, ambulating around the room EYES: normal conjunctivae, no scleral icterus ENT: external ear and nose normal, NECK: trachea midline, RESPIRATORY: clear to auscultation bilaterally, no crackles, rales or wheezes, normal respiratory effort CARDIOVASCULAR: regular rate and rhythm, S1 and 2 heard without murmurs, gallops or rubs, no JVD, no peripheral edema, CHEST: inspection of chest was normal GASTROINTESTINAL: soft, nontender, ND, no guarding MUSCULOSKELETAL: strength 5/5 throughout, head is normocephalic and atraumatic, neck supple, normal palpation of chest wall without tenderness SKIN: warm and dry NEUROLOGIC: CN 2-12 grossly intact, no sensory deficit, normal cognition, normal speech, no tremor PSYCHIATRIC: alert cooperative and oriented to person, place and time. Discharge Data Allergies Allergy/AdvReac Type Severity Reaction Status Date / Time No Known Allergies Allergy Unverified 05/23/21 08:25 Consultations 05/22/21 10:31 ED Decision to Admit Stat 05/22/21 11:11 Consult Gastroenterology Routine Procedures Performed Operation Date: 05/23/21 16:30 Actual Procedures p Esophagogastroduodenoscopy(Not Applicable) - Kenya Tony DO Hospital Course (1) GI bleed: Present on admission presented with coffee ground hematemesis and black loose BM Possible related to alcohol abuse Hgb on admission 10.7, then dropped to 8.3, then H/H was 7.4/20.9. He was transfused 2 units of blood on 05/23 and H/H improved to 8.7/29 by May 24. S/P EGD showed showed findings were notable for a 3 to 4 cm hiatal hernia and evidence of reflux esophagitis extending approximately 10 cm within the esop hagus. There was no Evidence of upper gastrointestinal bleeding. GI recommended to continue Omeprazole 40 mg daily for 3 months and Carafate slurry 4 times daily for 2 weeks Will need to repeat EGD in 3 months UDS was positive for cannabis and patient mentioned using edibles. He was encouraged to stop to avoid side effects. (2) Acute blood loss anemia: as above. (3) Alcohol abuse: Patient reports a longstanding history of alcohol abuse with periods of sobriety and binge drinking. Last week, was drinking a bottle of port wine and " white claws" daily. Pt denied any history of alcohol withdrawal. Feels this episode of binge drinking was precipitated by a recent knee surgery and post-operative pain me dications. Utilized gabapentin protocol while in the hospital and he requested something to help him with possible withdrawal symptoms at home. Given 10 pills of Ativan and strongly encouraged PCP follow-up when he returns to [place], his home state. Continue thiamine and folic acid as outpatient. (4) Elevated troponin: Initial troponin 0.08->0.05-> 0.04 No reports of chest pain, EKG does not show any acute ST changes Denies any chest pain. No further workup. (5) Hyperglycemia: Most recent Hba1c 5.2 (6) Hypomagnesemia: Likely related to recent drinking and variable PO intake as well as vomiting prior to arrival. Replaced. Total Time Total Time Spent Total Time Spent (In Minutes): 60 Discharge Plan Discharge Items Patient Disposition: Home - Self-Care Reason For Visit: GI BLEED Discharge Diagnosis: Acute GI bleeding Alcohol abuse Acute blood loss anemia Condition on Discharge: Good Activity: Resume your previous activity Non-emergency contact: Primary Care Provider Call non-emergency contact if: you have any medication questions, your symptoms worsen, your pain is not controlled, your pain is worsening, your pain is unusual for you, your pain is concerning for you and you have a fever Follow-up/Referrals: PCP,NO [Primary Care Provider] - Diet: Regular Addtl Attending Provider Instructions: Please take all medications per discharge medication list below. You have been given Lorazepam, which is a medication to help you if you experience any withdrawal symptoms. These may include sweating, anxiety, shakiness, headache, elevated blood pressure to name a few. The medication may not be enough, however, and you may need to seek immediate medical attention if symptoms worsen. You have undergone an upper endoscopy procedure while admitted. You are being prescribed carafate four times daily for the next two weeks, and protonix (pantoprozole) to take daily. A repeat EGD is recommended in three months time. A hospital follow-up is recommended within one week of discharge with your primary care physician. This will be to review medications and help you with your alcohol avoidance. It was a pleasure taking care of you! Please call if you have any questions or problems. You can reach a [facility] hospitalist on duty at [facility] 24 hours a day by calling [phone]. Take care of yourself. Sisi Schwartz, DO [facility] Hospitalist Pending Studies at Discharge: No Stand-Alone Forms: My [facility] Medications and DC Order Prescriptions: New pantoprazole 40 mg Tablet,Delayed Release (Dr/Ec) 40 mg PO DAILY Qty: 30 RF: 0 sucralfate [Carafate] 1 gram tablet 1 g PO QID Qty: 56 RF: 0 folic acid 1 mg Tablet 1 mg PO QAM Qty: 30 RF: 0 thiamine HCl (vitamin B1) 100 mg Tablet 100 mg PO QAM Qty: 30 RF: 0 lorazepam [Ativan] 0.5 mg tablet 0.5 mg PO Q8H PRN (Reason: withdrawal symptoms) Qty: 10 RF: 0 Discharge Orders: Discharge Order (Routine); Ordered 05/24/21 Ordered By: Sisi Schwartz Admission Data Admit Date/Time: 05/22/21 10:34 Attending Provider: Sisi Schwartz Admit Provider: Cindy Young Primary Care Provider: PCP,NO Other Providers: [place] Tony ; Cindy Young Other Interventions: Discharge Summary Assessment (RN) Last Done: 05/24/21 13:35
[2021-05-24] MEDS ORDERED: GABAPENTIN 600 MG TAB PO SCH (18:00)
[2021-05-26 00:01] LABS: 7-Aminoclonaz, Confirm NEGATIVE ng/mL (<25); Hydro-Alp Ur, GC/MS NEGATIVE ng/mL (<25); Hydroxyethylflurazepam, Conf NEGATIVE ng/mL (<50); Hydroxymidazolam Ur, GC/MS 1120 ng/mL (<50); Hydroxytriazolam NEGATIVE ng/mL (<50); Lorazepam, Ur GC/MS 674 ng/mL (<50); Marijuana Quant, GCMS Urine 105 ng/mL (<5); Nordiazepam, Confirm NEGATIVE ng/mL (<50); Oxazepam Ur, GC/MS NEGATIVE ng/mL (<50); Temazepam, Confirm NEGATIVE ng/mL (<50)
[2021-05-26] MEDS ORDERED: GABAPENTIN 600 MG TAB PO SCH (06:00)
== END 2021-05-24 13:44 | disposition home or self-care (01) | DRG 378 ==
LOC: ED 08:55 → SUATTDRO 10:34 → 2E 10:34
DX: K92.0 Hematemesis; K44.9 Diaphragmatic hernia without obstruction or gangrene; D62 Acute posthemorrhagic anemia; R00.0 Tachycardia, unspecified; R73.9 Hyperglycemia, unspecified; K92.1 Melena; F10.239 Alcohol dependence with withdrawal, unspecified; I24.8 Other forms of acute ischemic heart disease; K20.90 Esophagitis, unspecified without bleeding; E83.42 Hypomagnesemia